=== PATIENT | female | born 1970 | race Asian ===

== ENCOUNTER → 2022-09-29 | Outpatient (CLI) | payer OTHER ==
[2022-09-30 02:07] LABS: RUBELLA AB IGG-REFLAB 1.39 index (Immune >0.99)
[2022-09-30 03:07] LABS: RUBEOLA (MEASLES) IGG 68.1 AU/mL (Immune >16.4)
== END | disposition home or self-care (01) ==
LOC: LABMN 09:06
PROVIDERS: ATTEND Internal Medicine
DX: Z02.1 Encounter for pre-employment examination (principal)
CPT/HCPCS: 86706; 86735; 86762; 86765; 86787